=== PATIENT | female | born 2000 | race Caucasian/White ===

== ENCOUNTER 2023-10-23 16:17 | Emergency (ER) | payer OTHER, SELFPAY ==
--- NOTE | ~2023-10-23 | XR_ITS ---
EXAMINATION: XR sacrum coccyx min 2V DATE: 10/23/2023 16:53 INDICATION: Sacrococcygeal pain. Fall. TECHNIQUE: 3 views of the sacrum and coccyx were obtained. COMPARISON: None. FINDINGS: Bone alignment is normal. No fracture. Joint spaces are normal. There is an intrauterine de vice in expected position. IMPRESSION: 1. No fracture. Reviewed, dictated and finalized at location E. IMPRESSION: 1. No fracture.
[2023-10-23 16:30] VITALS: BP 117/70; PULSE 106; RESP 18; TEMP 36.6; O2SAT 99
--- NOTE | 2023-10-23 17:52 | ED.GENADULT ---
HPI - General Adult General Chief complaint: Unspecified Stated complaint: tailbone pain Time Seen by Provider: 10/23/23 17:39 History of Present Illness HPI narrative: 22-year-old female presents to the emergency room for evaluation of of tailbone pain. Patient states 5 days ago she abruptly set down on a cement block, and immediately began experiencing pain. Denies any radiating pain. Denies any saddle anesthesia. Denies any leg urinary complaints. Has taken Tylenol with no improvement of her symptoms. Pain is worse with movement and when sitting Related Data Allergies Allergy/AdvReac Type Severity Reaction Status Date / Time Sulfa (Sulfonamide Allergy Hives Verified 10/23/23 17:37 Antibiotics) Review of Systems Review of Systems: ROS unremarkable except for noted in HPI Exam Narrative: GENERAL: Well-appearing, well-nourished, no physical limitations, and in no acute distress. HEAD: Normocephalic, atraumatic. EYES: Conjunctivae normal, PERRLA and EOMI. CHEST: Clear to auscultation. No respiratory distress. No wheezes rales or rhonchi. HEART: Regular rate and rhythm. No murmur heard. Normal peripheral pulses. ABDOMEN: Soft, nontender, nondistended, normal active bowel sounds. BACK: No cervical/thoracic/lumbar tenderness, step-offs, bony abnormality; FROM. +TTP to sacrum EXTREMITIES: Normal range of motion. No edema. No clubbing or cyanosis SKIN: Warm, dry, no rash. No noted wounds NEURO: No focal deficits. Alert and oriented x3. MAEW. CN's II-XI intact bilaterally, normal gait PSYCH: Cooperative. Normal mood and affect. Course Vital Signs Vital signs: Vital Signs Temperature 36.6 C 10/23/23 16:30 Pulse Rate 106 H 10/23/23 16:30 Respiratory Rate 18 10/23/23 16:30 Blood Pressure 117/70 10/23/23 16:30 Pulse Oximetry 99 10/23/23 16:30 Oxygen Delivery Room Air 10/23/23 16:30 Temperature 36.6 C 10/23/23 16:30 Pulse Rate 106 H 10/23/23 16:30 Respiratory Rate 18 10/23/23 16:30 Blood Pressure 117/70 10/23/23 16:30 Pulse Oximetry 99 10/23/23 16:30 Oxygen Delivery Room Air 10/23/23 16:30 Medical Decision Making Vital Signs Vital Signs: Vital Signs Temperature 36.6 C 10/23/23 16:30 Pulse Rate 106 H 10/23/23 16:30 Respiratory Rate 18 10/23/23 16:30 Blood Pressure 117/70 10/23/23 16:30 Pulse Oximetry 99 10/23/23 16:30 Oxygen Delivery Room Air 10/23/23 16:30 Temperature 36.6 C 10/23/23 16:30 Pulse Rate 106 H 10/23/23 16:30 Respiratory Rate 18 10/23/23 16:30 Blood Pressure 117/70 10/23/23 16:30 Pulse Oximetry 99 10/23/23 16:30 Oxygen Delivery Room Air 10/23/23 16:30 Imaging Data Radiologist's impression: Impressions Sacrum and Coccyx X-Ray 10/23/23 16:55 IMPRESSION: 1. No fracture. Discharge Plan Discharge Clinical Impression: Contusion of sacrum Patient Disposition: Home, Self-Care Condition: Stable Instructions: Antibiotic Form, Contusion in Adults (ED) Prescriptions: New naproxen 500 mg tablet,delayed release (DR/EC) 500 mg PO BID Qty: 20 0RF Follow-up/Referrals: Hardeep,Cabrera Judge MD [Primary Care Provider] - Time of Disposition: 17:52
== END 2023-10-23 18:07 | disposition home or self-care (01) ==
PROVIDERS: Emergency Provider Nurse Practitioner Family; PCP Internal Medicine
DX: S30.0XXA Contusion of lower back and pelvis, initial encounter (principal); W22.8XXA Striking against or struck by other objects, initial encounter
CPT/HCPCS: 72220; 99283